=== PATIENT | male | born 1995 | race American Indian/Alaskan Native ===

== ENCOUNTER 2017-09-18 03:14 | Emergency (ER) | payer BC, OTHER ==
[2017-09-18 04:18] VITALS: BP 128/79
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
[2017-09-18] MEDS ORDERED: NORCO 5/325 PO ONE (06:22)
[2017-09-18] MEDS ORDERED: FLEXERIL PO ONE (06:22)
== END 2017-09-18 07:21 | disposition home or self-care (01) ==
LOC: ED 03:14
DX: S39.012A Strain of muscle, fascia and tendon of lower back, initial encounter (principal); V49.59XA Passenger injured in collision with other motor vehicles in traffic accident, initial encounter; Y93.89 Activity, other specified; Y92.89 Other specified places as the place of occurrence of the external cause; Y99.8 Other external cause status
CPT/HCPCS: 99282